=== PATIENT | female | born 1995 | race Caucasian/White ===

== ENCOUNTER 2023-05-30 09:38 | Emergency (ER) | payer BC ==
[~2023-05-30] VITALS: Ht 154.9 cm; Wt 48.1 kg
[2023-05-30 12:39] VITALS: BP 124/75; TEMP 98.2; O2SAT 98
== END 2023-05-30 12:39 | disposition home or self-care (01) ==
LOC: ER 09:46
DX: R05.9 Cough, unspecified (principal); J45.909 Unspecified asthma, uncomplicated; Z20.822 Contact with and (suspected) exposure to COVID-19
CPT/HCPCS: 99284; 71045; 87426; C9803